=== PATIENT | male | born 1975 | race Caucasian/White ===

== ENCOUNTER 2023-05-26 06:40 | Emergency (ER) | payer OTHER, SELFPAY ==
[2023-05-26 06:45] VITALS: BP 160/102; PULSE 80; RESP 16; TEMP 36.7; O2SAT 100; BMI 25.0
--- NOTE | 2023-05-26 07:38 | XR_ITS ---
The [address] [address] Patient Name: BILLY MIX MRN: [id number] date: 1975 Sex: M Assigned Patient Location: ER Current Patient Location: ER Accession/Order Number: [id number] Exam Date: 05/26/2023 07:32 Report Date: 05/26/2023 07:56 At the request of: DONALD PEOPLES Procedure: XR tibia fibula RT 2V PROCEDURE: XR tibia fibula RT 2V HISTORY: pain ; acute right lower leg pain COMPARISON: None. FINDINGS: BONES:Atypical appearance of the marrow cavity of the fibula and areas of irregular cortical thickening of the fibula. No periosteal reaction or bone expansion. Unremarkable tibia. SOFT TISSUES:No visible soft tissue swelling. EFFUSION:None visible. OTHER: Negative. XR/XR tibia fibula RT 2V IMPRESSION: 1. Atypical, irregular appearance of the marrow cavity and cortex of the fibula; sequela of prior trauma versus possible bone lesion. Nonemergent MRI of the lower leg should be considered for clarification and to exclude a bone lesion. Electronically authenticated by: EDITA MALIN Date: 05/26/2023 07:56
--- NOTE | 2023-05-26 08:05 | ED.LOWEXI1 ---
HPI - Extremity Injury (Lower) General Chief Complaint: Extremity Injury, Lower Stated Complaint: R LEG INJURY Time Seen by Provider: 05/26/23 07:12 Source: patient Mode of arrival: walk-in History of Present Illness HPI Narrative: 47-year-old male presents for pain in his right calf. It started yesterday. He was in his crotch and saw a snake and he jumped back and had sudden onset of pain in the calf. His knee and ankle do not hurt and he has no pain in the Achilles tendon area. He's never had any injury to this leg previously. It hurts more to walk on it. Related Data Home Medications Medication Instructions Recorded Confirmed doxycycline hyclate 100 mg capsule 100 mg PO DAILY 05/26/23 05/26/23 fluoxetine 40 mg capsule 40 mg PO DAILY 05/26/23 05/26/23 lisinopril 20 mg tablet 20 mg PO DAILY 05/26/23 05/26/23 Allergies Allergy/AdvReac Type Severity Reaction Status Date / Time No Known Drug Allergies Allergy Verified 05/26/23 06:52 Review of Systems ROS Narrative A ten point review of systems is negative except as noted above. PFSH PFS Social History Smoking status: Never smoker Exam Narrative Exam Narrative: Nurses note and vital signs reviewed and patient is not hypoxic. General: The patient appears well and in no apparent distress. Patient is resting comfortably on cart. Skin: Warm, dry, no pallor noted. There is no rash noted. Head: Normocephalic, atraumatic Eye: Normal conjunctiva, no drainage Ears, Nose, Mouth, and Throat: oral mucosa is moist. Nares patent. Cardiovascular: Regular Rate and Rhythm Respiratory: Patient is in no distress, no accessory muscle use Back: non-tender GI: soft and nontender Musculoskeletal: the right leg is examined. The knee and ankle are nontender and have good range of motion. The Achilles tendon is intact and nontender. Lowery test is normal. He does however have palpable tenderness in the calf area without mass. There is no bruising or deformity. Neurological: A&O, normal speech Psychiatric: Cooperative Constitutional Vital Signs, click to edit/add: Last Vital Signs Temp 98.0 F 05/26/23 06:45 Pulse 80 05/26/23 06:45 Resp 16 05/26/23 06:45 BP 160/102 H 05/26/23 06:45 Pulse Ox 100 05/26/23 06:45 O2 Del Method Room Air 05/26/23 06:45 Course Vital Signs Vital signs: Vital Signs Temperature 98.0 F 05/26/23 06:45 Pulse Rate 80 05/26/23 06:45 Respiratory Rate 16 05/26/23 06:45 Blood Pressure 160/102 H 05/26/23 06:45 Pulse Oximetry 100 05/26/23 06:45 Oxygen Delivery Method Room Air 05/26/23 06:45 Temperature 98.0 F 05/26/23 06:45 Pulse Rate 80 05/26/23 06:45 Respiratory Rate 16 05/26/23 06:45 Blood Pressure 160/102 H 05/26/23 06:45 Pulse Oximetry 100 05/26/23 06:45 Oxygen Delivery Method Room Air 05/26/23 06:45 MDM - Extremity Injury (Lower) MDM Narrative Medical decision making narrative: x-ray findings are discussed with the patient. He has no previous history of trauma to that leg and is going to follow-up with orthopedics. River wrap applied and application checked by me and found be appropriate, he is neurovascularly intact. He has access to crutches that he'll utilize and he'll follow-up with orthopedics. Ice rest and elevation and anti-inflammatories were recommended as well. Treatment diagnosis and follow-up were discussed with the patient. Differential Diagnosis Differential diagnosis: Likely ankle sprain and strain and other (Achilles tendon rupture, muscle strain) Imaging Data right tibia-fibula x-ray: Radiologist's impression: Procedure: XR tibia fibula RT 2V PROCEDURE: XR tibia fibula RT 2V HISTORY: pain ; acute right lower leg pain COMPARISON: None. FINDINGS: BONES:Atypical appearance of the marrow cavity of the fibula and areas of irregular cortical thickening of the fibula. No periosteal reaction or bone expansion. Unremarkable tibia. SOFT TISSUES:No visible soft tissue swelling. EFFUSION:None visible. OTHER: Negative. IMPRESSION: 1. Atypical, irregular appearance of the marrow cavity and cortex of the fibula; sequela of prior trauma versus possible bone lesion. Nonemergent MRI of the lower leg should be considered for clarification and to exclude a bone lesion. Electronically authenticated by: EDITA MALIN Date: 05/26/2023 Discharge Plan Discharge Chief Complaint: Extremity Injury, Lower Clinical Impression: Strain of right calf muscle Patient Disposition: Home, Self-Care Time of Disposition Decision: 08:04 Condition: Good Mode of Transportation: Private Vehicle Prescriptions / Home Meds: No Action fluoxetine 40 mg capsule 40 mg PO DAILY doxycycline hyclate 100 mg capsule 100 mg PO DAILY lisinopril 20 mg tablet 20 mg PO DAILY Instructions: Muscle Strain (ED) Additional Instructions: follow-up with Dr. Parikh regarding fibula irregularity on the x-ray Stand Alone Forms: Portal Instructions Referrals: SILKE HIDALGO [Primary Care Provider] - 1 week
== END 2023-05-26 08:12 | disposition home or self-care (01) ==
PROVIDERS: Emergency Provider Emergency Medicine; Family Provider Internal Medicine; PCP Internal Medicine
DX: S86.811A Strain of other muscle(s) and tendon(s) at lower leg level, right leg, initial encounter (principal); X50.9XXA Other and unspecified overexertion or strenuous movements or postures, initial encounter; Z79.899 Other long term (current) drug therapy
CPT/HCPCS: 73590; 99283